=== PATIENT | female | born 1955 | race African-American/Black ===

== ENCOUNTER 2016-11-05 03:50 | Emergency (ER) | payer MEDICARE ==
[2016-11-05 04:15] LABS: Urine Bilirubin Negative (NEGATIVE); Urine Ketone Negative (NEGATIVE); Urine Nitrite Negative (NEGATIVE); Urine Protein Negative (NEGATIVE); Urine Specific Gravity 1.025 SP.GR. (1.005-1.010); Urine Urobilinogen Normal (NORMAL)
[2016-11-05 04:25] LABS: Urine Appearance Clear; Urine Bacteria TRACE; Urine Blood 10 /ul (NEGATIVE); Urine Color Yellow; Urine RBC 0-5 /hpf (0-5); Urine WBC 0-5 /hpf (0-5)
--- NOTE | 2016-11-05 04:30 | ERNOTE ---
ER Female HPI Stated Complaint: MED REACTION Time Seen by Provider: 11/05/16 04:14 Source: patient Immunizations: IMMUNIZATION HX Immunizations Up to Date Yes History of Influenza Vaccine Yes Hx Pneumococcal Vaccination No Allergies/Adverse Reactions: Allergies codeine Adverse Reaction (Intermediate, Verified 11/05/16 04:07) nightmares erythromycin base [Erythromycin Base] Adverse Reaction (Mild, Verified 11/05/16 04:07) Diarrhea, nausea Home Medications: HOME MEDICATIONS Carboxymethylcell/Hypromellose [Genteal Gel Drops] 1 drop EACHEYE HS 06/02/14 [ Last Taken Unknown] Cholecalciferol (Vitamin D3) [Vitamin D3] 2,000 unit PO DAILY 06/02/14 [Last Taken 06/12/14] Clonazepam 2 mg PO HS 06/02/14 [Last Taken Unknown] Escitalopram Oxalate [Lexapro] 40 mg PO DAILY 06/02/14 [Last Taken Unknown] Fluticasone Propionate [Flonase] 2 spray NS DAILY PRN 06/02/14 [Last Taken Unknown] Loratadine [Claritin] 10 mg PO DAILY PRN 06/02/14 [Last Taken Unknown] Polyvinyl Alcohol/Povidone/Pf [Refresh Classic Eye Drops] 1 each EACHEYE PRN PRN 06/02/14 [Last Taken Unknown] Simvastatin [Zocor] 20 mg PO HS 06/02/14 [Last Taken Unknown] Vitamin B Complex [B Complex] 1 tab PO DAILY 06/02/14 [Last Taken Unknown] Cephalexin 500 mg PO BID 11/05/16 [Last Taken 11/04/16 18:30] Ergocalciferol (Vitamin D2) [Vitamin D2] 2,000 units PO DAILY 11/05/16 [Last Taken Unknown] Saccharomyces Boulardii [Probiotic] 2 tab PO DAILY 11/05/16 [Last Taken Unknown] Sennosides/Docusate Sodium [Senokot-S] 1 tab PO HS PRN 11/05/16 [Last Taken Unknown] Sulfamethoxazole/Trimethoprim [Bactrim Ds] 1 tab PO BID #20 tab 11/05/16 [Last Taken Unknown] - History of Present Illness Narrative: had some "bladder pain" earlier on today. None now. no fevers chills or dysuria. On keflex for Sinus infection. Day number 5 of Keflex. Review of Systems - Review of Systems Constitutional: Present: no symptoms reported EYE: Present: no symptoms reported ENT: Present: no symptoms reported Respiratory: Present: no symptoms reported Cardiology: Present: no symptoms reported Gastrointestinal/Abdominal: Present: no symptoms reported Genitourinary: Present: no symptoms reported Musculoskeletal: Present: no symptoms reported Skin: Present: no symptoms reported - Patient's Past Medical History Patient History - Cardiac/Respiratory: Hyperlipidemia Patient History - Cancer: No Hx of Cancer Patient History - Surgical Procedures: Cholecystectomy, Hysterectomy, Other Patient History - Other: None - Social History Living Situations: home Psych History: Hx of Depression, Current tx/ever been on anti-depressants or anti-anxiety meds Smoking Status: Never smoker Alcohol Use: none Drug Use: none - Immunizations Immunizations Up to Date: Yes Hx Pneumococcal Vaccination: No History of Influenza Vaccine: Yes Physical Exam - Physical Exam General Appearance: Present: wd/wn, alert, no apparent distress Respiratory: Present: no respiratory distress, normal breath sounds, no accessory muscle use, chest nontender, lungs clear Cardiovascular/Chest: Present: regular rate, rhythm, no murmur, normal peripheral pulses Gastrointestinal/Abdominal: Present: normal bowel sounds, nontender, nondistended, soft, no organomegaly ED Progress - Results and Orders Patient's Lab Results:: I have reviewed the patient's lab results. - Vital Signs Patient's Vital Signs:: I have reviewed the patient's vital signs. Vital Signs: Vital Signs 11/05/16 03:56 Temperature 36.1 C L Pulse Rate 59 L Respiratory 18 Rate Blood Pressure 148/74 O2 Sat by Pulse 95 Oximetry - Progress/Reassessment Chief Complaint: Genitourinary Problem Plan - Plan Plan: pt has a UTI she has no abd pain now. Will switch to Bactrim Departure Clinical Impression: UTI (urinary tract infection) Qualifiers: Urinary tract infection type: acute cystitis Hematuria presence: with hematuria Qualified Code(s): N30.01 - Acute cystitis with hematuria - Departure Disposition: Home self-care Condition: Good Instructions: Urinary Frequency, Adult Referrals: Marii Capone MD [Primary Care Provider] - Prescriptions: Sulfamethoxazole/Trimethoprim [Bactrim Ds] 1 tab PO BID #20 tab
--- OUTSIDE RECORDS SUMMARY | 2016-11-05 04:44 | XMS REPORT | Continuity of Care Document ---
:1955 Author Organization [facility] ([facility]) Address [address] [address] Phone [phone] Care Team Providers Name Role Phone Greyson Kohli Primary Care Provider [phone] Source Comments This disclosure is being made pursuant to the Care Everywhere program, applicable federal and state laws, and may not contain all informaitonavailable regarding this patient.[facility] ([facility]) Active Allergies and Adverse Reactions Allergen Noted Date Severity Reactions Comments Amoxicillin Diarrhea,Nausea & Vomiting Codeine OTHER Nightmares Erythromycin Nausea & Vomiting,Diarrhea,Stomach Pain Current Medications Not on file Active Problems Problem Noted Date Streptococcal sore throat 09/20/2007 Hypoactive labyrinth, unilateral 09/08/2007 Ataxia, 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 Unspecified hearing loss 09/05/2007 Problems with smell and taste 03/11/2007 Other and unspecified hyperlipidemia 03/11/2007 Anxiety state, unspecified 03/11/2007 Abnormality of gait 03/11/2007 Pure hypercholesterolemia 08/29/2006 Pain in joint, lower leg 08/29/2006 Other specified general medical examination 07/20/2006 Routine gynecological examination 07/20/2006 Screening for lipoid disorders 07/20/2006 Depressive disorder, not elsewhere classified 07/20/2006 Cerebral atherosclerosis 07/20/2006 Other speech disturbance 06/14/2006 Other screening mammogram 04/12/2006 Generalized anxiety disorder 04/12/2006 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 Diarrhea 09/11/2005 Special screening for malignant neoplasms, colon 08/02/2005 Screening for diabetes mellitus 08/02/2005 Essential hypertension, benign 08/02/2005 Other symptoms involving urinary system 01/12/2005 Osteoarthrosis, unspecified whether generalized or localized, unspecified site Pain in joint, ankle and foot 12/24/2003 Carpal tunnel syndrome 11/13/2003 Cervical spondylosis without myelopathy 05/21/2003 Immunizations Name Dates Previously Given Next Due Influenza, unspecified 04/29/2003 Social History Tobacco Use Types Packs/Day Years Used Date Never Assessed Last Filed Vital Signs Vital Sign Reading Time Taken Blood Pressure 124/74 09/05/2007 11:53 AM [employer] Pulse 74 09/05/2007 11:53 AM [employer] Temperature 36 C (96.8 F) 09/05/2007 11:53 AM [employer] Respiratory Rate 16 09/05/2007 11:53 AM [employer] Height 1.75 m (5' 8.89") 09/05/2007 11:53 AM [employer] Weight 101.297 kg (223 lb 5.1 oz) 09/05/2007 11:53 AM [employer] Body Mass Index 33.08 09/05/2007 11:53 AM [employer] Oxygen Saturation - - Plan of Care Health Maintenance Due Date Last Done Comments HCV Screening 1955 Hepatitis B Vaccine (1 of 3 1955 - Primary Series) Tdap Vaccine 1965 Td Vaccine 1972 Cervical Cancer Screening 1984 Mammogram 08/29/2007 08/29/2006, 03/18/1999 Lipid Disorder Screening 09/04/2012 09/05/2007, Additional history exists 03/11/2007, 07/20/2006 Zoster Vaccine 2014 Influenza Vaccine: Seasonal 01/31/2016 04/29/2003 (#1) Colonoscopy 01/28/2017 01/28/2007 Results from Last 3 Months Not on file
--- OUTSIDE RECORDS SUMMARY | 2016-11-05 04:44 | XMS REPORT | CCD ---
:1955 Author Organization [facility] Care Team Providers Name Role Phone Michael Gavin Consulting Provider [phone] Abilio Soto Consulting Provider [phone] Marii Capone Primary Care Provider [phone] No Family Phy, Physician Referring Provider Unavailable Allergies, Adverse Reactions, Alerts Substance Reaction Status codeine Active erythromycin Active Medications Medication Instructions Start Date End Date Status GenTeal ophthalmic gel 1 Drops, Eye-Right, HS (At 04/16/2013 Ordered Bedtime) simvastatin 20 mg oral 20 mg=1 Tab, PO, DailyWM 04/16/2013 Ordered tablet (Once Daily With A Meal) Ambien 5 mg, PO, HS (At Bedtime) 04/21/2013 Ordered Lexapro 10 mg, PO, Daily (Once Daily) 04/21/2013 Ordered clonazepam 0.5 mg, PO, BIDWM (Twice 04/21/2013 Ordered Daily With Meals) Vital Signs Most recent to oldest 1 2 3 [Reference Range]: Respiratory Rate [12-30 18 brpm 20 brpm 18 brpm brpm] (04/21/2013 07:16:00) (04/20/2013 20:28:00) (04/20/2013 09:31:00) Systolic Blood Pressure 119 mm hg 118 mm hg 125 mm hg (04/21/2013 07:16:00) (04/20/2013 20:28:00) (04/20/2013 09:31:00) Diastolic Blood Pressure 87 mm hg 72 mm hg 77 mm hg [61-99 mm hg] (04/21/2013 07:16:00) (04/20/2013 20:28:00) (04/20/2013 09:31: 00) Temperature F [97.7-99.9 98.4 degF 98.1 degF 97.2 degF degF] (04/20/2013 20:28:00) (04/19/2013 16:15:00) *LOW* (04/18/2013 16:30:00) Height 175.3 cm 175.3 cm (04/16/2013 17:22:00) (04/16/2013 17:22:00) Weight 98.636 kg (04/16/2013 17:22:00)
--- OUTSIDE RECORDS SUMMARY | 2016-11-05 04:44 | XMS REPORT | CCD ---
:1955 Author Organization [facility] Care Team Providers Name Role Phone Michael Gavin Consulting Provider [phone] Abilio Soto Consulting Provider [phone] Marii Capone Primary Care Provider [phone] No Family Phy, Physician Referring Provider Unavailable Allergies, Adverse Reactions, Alerts Substance Reaction Status codeine Active erythromycin Active Medications Medication Instructions Start Date End Date Status Therapeutic-M 1 Tab, PO, DailyWM (Once 04/16/2013 05/15/2013 Ordered Daily With A Meal), Tab, Routine, Start: 04/16/13 18:35:00 Maalox Plus 30 ml, PO, [id number], 04/16/2013 05/16/2013 Ordered Suspension, PRN, Heartburn-Indigestion, Routine, Start: 04/16/13 18:26:00Contains Aluminum Hydroxide 200 mg, Magnesium Hydroxide 200 mg, Simethicone 20 mg per 5 ml. Shake Well. Motrin 400 mg, 1 Tab, PO, [id number], 04/16/2013 05/16/2013 Ordered Tab, PRN, Mild Pain, Routine, Start: 04/16/13 18:26:00 Milk of Magnesia susp 30 ml, PO, HS (At Bedtime), 04/16/2013 05/16/2013 Ordered Suspension, PRN, Constipation, Routine, Start: 04/16/13 18:26:00 Ambien 5 mg, 1 Tab, PO, HS (At 04/18/2013 05/17/2013 Ordered Bedtime), Tab, Start: 04/18/13 21:00:00 ocular lubricant instill, Gel, Eye-Right, HS 04/16/2013 05/15/2013 Ordered (At Bedtime), Start: 04/16/13 21:00:00 GenTeal ophthalmic gel 1 Drops, Eye-Right, HS (At 04/16/2013 Ordered Bedtime) simvastatin 20 mg oral 20 mg=1 Tab, PO, DailyWM 04/16/2013 Ordered tablet (Once Daily With A Meal) Ambien 5 mg, PO, HS (At Bedtime) 04/21/2013 Ordered Lexapro 10 mg, PO, Daily (Once 04/21/2013 Ordered Daily) clonazepam 0.5 mg, PO, BIDWM (Twice 04/21/2013 Ordered Daily With Meals) Lexapro 10 mg, 1 Tab, PO, Daily 04/17/2013 05/16/2013 Ordered (Once Daily), Tab, Routine, Start: 04/17/13 10:54:00 Bactrim DS 1 Tab, PO, BID (Twice 04/16/2013 04/23/2013 Ordered Daily), Tab, Routine, Start: 04/16/13 21:00:00, 7 day(s)Each tablet contains Sulfamethoxazole-Trimethopri m 800 mg-160 mg. Klonopin 0.5 mg, 1 Tab, PO, BIDWM 04/18/2013 05/17/2013 Ordered (Twice Daily With Meals), Tab, Routine, Start: 04/18/13 9:02:00Caution: Look Alike, Sound Alike Drug. Zocor 20 mg, 1 Tab, PO, HS (At 04/18/2013 05/17/2013 Ordered Bedtime), Tab, Routine, Start: 04/18/13 21:00:00 Vital Signs Most recent to oldest 1 [...]
--- OUTSIDE RECORDS SUMMARY | 2016-11-05 04:44 | XMS REPORT | Continuity of Care Document ---
:1955 Author Organization [facility] [place] [address] Care Team Providers Name Role Phone Unavailable Primary Care Provider Unavailable Source Comments This disclosure is being made pursuant to the [employer] program and maynot contain all information available regarding this patient.[facility] Active Allergies and Adverse Reactions Allergen Noted Date Severity Reactions Comments Codeine 03/14/2015 Other (See Comments) nightmares Erythromycin 03/14/2015 Low Diarrhea Current Medications Be aware that medications may not be up to date as of this document. Alwaysverify current medications with the patient. No known medications Active Problems Not on file Most Recent Encounters Date Type Specialty Providers Description 09/12/2016 Nurse Triage Call Center Fang Chew RN Hip Pain - " I am wondering if you have any info on exersises Social History Tobacco Use Types Packs/Day Years Used Date Never Assessed Plan of Care Health Maintenance Due Date Last Done Comments Hepatitis C Screening 1972 Tetanus/Pertussis (1 - Tdap) 1973 Pap Smear 1975 Colonoscopy 2004 Mammogram 2004 Well Adult Visit 2004 Zoster Vaccine 60+ 2014 Influenza Immunization (#1) 2016 Results from Last 3 Months Not on file
[2016-11-05 04:46] VITALS: BP 120/90
== END 2016-11-05 04:40 | disposition home or self-care (01) ==
LOC: ER 03:50
DX: N30.01 Acute cystitis with hematuria (principal); E78.5 Hyperlipidemia, unspecified